=== PATIENT | male | born 1995 | race Caucasian/White ===

== ENCOUNTER 2018-12-20 22:11 | Emergency (ER) | payer BC, OTHER ==
[~2018-12-20] VITALS: Ht 170.2 cm; Wt 63.6 kg
[~2018-12-20 22:11] MED LIST: NO CURRENT MEDS; NO REGULAR MEDS
[2018-12-20 22:16] VITALS: Ht 170.2 cm; Wt 63.6 kg
[2018-12-21] MEDS ORDERED: ONDANSETRON 4 MG INJ IV STA (03:16)
[2018-12-21] MEDS ORDERED: morphine 2 MG INJ IV STA (03:16)
[2018-12-21] MEDS ORDERED: SOD CHLORIDE 0.9% 1,000 ML IV STA (03:16)
--- NOTE | 2018-12-21 03:35 | ERD ---
ER Documentation Chief Complaint Chief Complaint left abdominal pain x 2 days HPI 23-year-old male with a history of viral pancreatitis presents with upper left quadrant abdominal pain for the past 2 days. Says that he was at an urgent care earlier where they did a x-ray and that showed some inflammation in the bowel. He does not have the results though of the x-ray. States that the pain is worse when he eats. Denies any testicular pain or dysuria or penile discharge. Not taking any treatments. Denies nausea, vomiting, diarrhea, fevers. Allergic to Bactrim. ROS All systems reviewed and are negative except as per history of present illness. Medications Home Meds Active Scripts Magaldrate/Simethicone* (Mylanta*) 355 Ml Susp, 30 ML PO QID PRN for GASTROINTESTINAL UPSET, #1 BOTTLE Prov:JONNIE YUSUF 12/21/18 Famotidine* (Pepcid*) 20 Mg Tablet, 20 MG PO BID for gastritis for 7 Days, #14 TAB Prov:JONNIE YUSUF 12/21/18 Acetaminophen* (Tylophen*) 500 Mg Capsule, 2 CAP PO Q8H PRN for PAIN AND OR ELEVATED TEMP, #20 CAP Prov:JONNIE YUSUF 12/21/18 Reported Medications [No Current Meds] No Conflict Check 11/13/10 [No Regular Meds] No Conflict Check 09/19/10 Allergies Allergies: Coded Allergies: Sulfamethoxazole (Verified Allergy, Severe, 10/25/11) trimethoprim (Verified Allergy, Severe, 10/25/11) Uncoded Allergies: OLIVE TREE (Allergy, Severe, 10/25/11) CARLA PEEL (Adverse Reaction, Unknown, 07/27/09) PMhx/Soc History of Surgery: Yes (TONSILLECTOMY,adenoidectomy) Anesthesia Reaction: No Hx Neurological Disorder: No Hx Respiratory Disorders: No Hx Cardiac Disorders: No Hx Psychiatric Problems: No Hx Miscellaneous Medical Probl: No Hx Alcohol Use: Yes (socially) Hx Substance Use: No Hx Tobacco Use: No (quit) Smoking Status: Former smoker FmHx Family History: No diabetes, No coronary disease, No other Physical Exam Vitals Vital Signs Date Temp Pulse Resp B/P (MAP) Pulse Ox O2 O2 Flow FiO2 Time Delivery Rate 12/21/18 97.9 61 20 113/64 100 Room Air 05:22 (80) 12/20/18 97.2 61 18 136/79 100 22:16 (98) Physical Exam Const: No acute distress Head: Atraumatic Eyes: Normal Conjunctiva ENT: Normal External Ears, Nose and Mouth. Neck: Full range of motion. No meningismus. Resp: Clear to auscultation bilaterally Cardio: Regular rate and rhythm, no murmurs Abd: Tenderness to palpation in the upper left lower left quadrant. Negative McBurney's. Patient able to jump up and down without difficulty. Skin: No petechiae or rashes Back: No midline or flank tenderness Ext: No cyanosis, or edema Neur: Awake and alert Psych: Normal Mood and Affect Result Diagram: 12/21/1833212/21/18332 Results 24 hrs Laboratory Tests Test 12/21/18 03:33 White Blood Count 6.4 10^3/ul Red Blood Count 5.07 10^6/ul Hemoglobin 15.6 g/dl Hematocrit 47.0 % Mean Corpuscular Volume 92.7 fl Mean Corpuscular Hemoglobin 30.8 pg Mean Corpuscular Hemoglobin Concent 33.2 g/dl Red Cell Distribution Width 12.0 % Platelet Count 187 10^3/UL Mean Platelet Volume 10.5 fl Immature Granulocytes % 0.300 % Neutrophils % 56.7 % Lymphocytes % 32.5 % Monocytes % 9.2 % Eosinophils % 1.1 % Basophils % 0.2 % Nucleated Red Blood Cells % 0.0 /100WBC Immature Granulocytes # 0.020 10^3/ul Neutrophils # 3.7 10^3/ul Lymphocytes # 2.1 10^3/ul Monocytes # 0.6 10^3/ul Eosinophils # 0.1 10^3/ul Basophils # 0.0 10^3/ul Nucleated Red Blood Cells # 0.0 10^3/ul Urine Color YELLOW Urine Clarity CLEAR Urine pH 6.0 Urine Specific [place] 1.017 Urine Ketones 1+ mg/dL Urine Nitrite NEGATIVE mg/dL Urine Bilirubin NEGATIVE mg/dL Urine Urobilinogen NEGATIVE mg/dL Urine Leukocyte Esterase NEGATIVE Jie/ul Urine Hemoglobin NEGATIVE mg/dL Urine Glucose NEGATIVE mg/dL Urine Total Protein NEGATIVE mg/dl Sodium Level 140 mmol/L Potassium Level 4.3 mmol/L Chloride Level 100 mmol/L Carbon Dioxide Level 31 mmol/L Anion Gap 9 Blood Urea Nitrogen 9 mg/dl Creatinine 0.87 mg/dl Est Glomerular Filtrat Rate mL/min > 60 mL/min Glucose Level 93 mg/dl Calcium Level 9.9 mg/dl Total Bilirubin 0.8 mg/dl Direct Bilirubin 0.00 mg/dl Indirect Bilirubin 0.8 mg/dl Aspartate Amino Transf (AST/SGOT) 36 IU/L Alanine Aminotransferase (ALT/SGPT) 34 IU/L Alkaline Phosphatase 50 IU/L Total Protein 8.2 g/dl Albumin 4.9 g/dl Globulin 3.30 g/dl Albumin/Globulin Ratio 1.48 Lipase 56 U/L Current Medications Medications Dose Sig/Cash Start Time Status Last (Trade) Ordered Route PRN Stop Time Admin Dose Reason Admin Sodium 1,000 ml @ Q1H STAT 12/21/18 DC 12/21/18 Chloride 1,000 mls/hr IV 03:16 03:40 12/21/18 04:15 Morphine 2 mg ONCE STAT 12/21/18 DC 12/21/18 Sulfate IV 03:16 03:39 (morphine) 12/21/18 03:19 Ondansetron 4 mg ONCE STAT 12/21/18 DC 12/21/18 HCl (Zofran IV 03:16 03:39 Inj) 12/21/18 03:20 Sodium 100 ml @ ud STK-MED 12/21/18 DC 12/21/18 Chloride ONCE .ROUTE 04:16 04:33 12/21/18 04:17 Iohexol 150 ml STK-MED 12/21/18 DC 12/21/18 (Omnipaque ONCE .ROUTE 04:16 04:32 300mg/ ml) 12/21/18 04:17 Procedures/MDM DIAGNOSTIC IMAGING REPORT Patient: SHERRILL LOPEZ : 1995 Age: 23 Sex: M MR #: [id number] DOS: 12/21/18 0332 Ordering MD: JONNIE YUSUF Location: [facility] Room/Bed: PROCEDURE: XR Chest 1 View CLINICAL INDICATION: Pain. TECHNIQUE: VIEWS: 1 IMAGES: 1 COMPARISON: None. FINDINGS: CARDIAC AND MEDIASTINAL SILHOUETTES: Within normal limits. LUNGS: Appear clear. OSSEOUS STRUCTURES: Unremarkable. IMPRESSION: 1. No acute abnormality is appreciated. RPTAT:HGST Salena Rolon Physician Date Time Electronically viewed and signed by Salena Rolon Physician on 12/21/2018 03:56 GT/ CC: JONNIE YUSUF [phone] DIAGNOSTIC IMAGING REPORT Patient: SHERRILL LOPEZ : 1995 Age: 23 Sex: M MR #: [id number] DOS: 12/21/18 0316 Ordering MD: JONNIE YUSUF Location: [facility] Room/Bed: PROCEDURE: CT Abdomen and pelvis with contrast. CLINICAL INDICATION: Abdominal pain TECHNIQUE: CT scan of the abdomen and pelvis with contrast was performed on a multidetector high-resolution CT scan. The patient was scanned following the uncomplicated intravenous administration of 100 cc Omnipaque 300. Coronal and sagittal reformatted images were obtained from the axial source images. Standard CT of the abdomen pelvis with contrast protocols were performed. The total exam CTDI equals 5.72 mGy and the total exam DLP equals 337.56 mGy-cm. One or more of the following dose reduction techniques were used: - Automated exposure control. - Adjustment of the mA and/or kV according to patient size. Use of iterative reconstruction technique. Dicom images are available COMPARISON: None. FINDINGS: A definite appendix is not visualized however there is no CT evidence of appendicitis. Stomach, small bowel and large bowel unremarkable. No evidence of intra-abdominal free air, free fluid, abscesses or lymphadenopathy. Kidneys normal in size without calcified calculi hydronephrosis or intra renal masses bilaterally. No ureteral calcified calculi or dilatation. Partially contracted urinary bladder otherwise unremarkable. Prostate unremarkable. Liver spleen pancreas adrenal glands and gallbladder are unremarkable. No evidence of biliary ductal dilation. Lung bases unremarkable. Aorta unremarkable. Abdominal pelvic wall unremarkable. Minimal S-shaped lower thoracic lumbar scoliosis. Osseous structures otherwise unremarkable. IMPRESSION: 1. No evidence of gastrointestinal disease. 2. No evidence of calcified urinary calculi or obstructive uropathy. RPTAT:AAJJ Physician Adriana Date Time Electronically viewed and signed by Physician Adriana on 12/21/2018 04:37 BM/ CC: JONNIE YUSUF [phone] 23-year-old male with a history of viral pancreatitis presents with upper left quadrant abdominal pain for the past 2 days. Says that he was at an urgent care earlier where they did a x-ray and that showed some inflammation in the bowel. He does not have the results though of the x-ray. States that the pain is worse when he eats. Denies any testicular pain or dysuria or penile discharge. Not taking any treatments. Denies nausea, vomiting, diarrhea, fevers. Allergic to Bactrim. Given patient's history of pancreatitis as well as acute abdominal pain, decision was made to perform abdominal CT. This was approved by supervising physician. CT was within normal limits. X-ray was also within normal limits. All labs were within normal limits as well. Patient most likely suffering from gastritis. Gave patient given Rx for Pepcid as well as Mylanta. I have low suspicion for appendicitis due to patient history and exam, including normal abdominal exam, lack of McBurney's point tenderness [and ability of patient to jump up and down on exam. I have low suspicion for volvulus or obstruction due patient history and exam, including lack of history of biliary emesis and normal physical exam. [I have low suspicion for testicular torsion or phimosis due to patient history and normal exam]. I have low suspicion of invasive diarrhea due to patient history and exam, including lack of hematochez ia. I have low suspicion for dehydration due to moist and pink mucous membranes, [normal labs] patients non lethargic state, [passing PO challenge test], and normal cap refill. I have low suspicion of DKA based on patient history and exam, [including normal glucose, urinalysis, and lack of signs of dehydration]. I have low suspicion for adrenal crisis, AAA, mesenteric ischemia, pyelonephritis, cholecystitis, aortic dissection, ectopic, [place], pneumonia, acute pancreatitis, PID, or other emergent causes based on patient history and exam. Based on these findings I do not feel that additional labs, imaging. or antibiotics are necessary. Patient was discharged with strict ER precautions. Patient was recommended to follow-up with PMD. All questions answered at discharge. Departure Diagnosis: Primary Impression: Abdominal pain Abdominal location: left upper quadrant Qualified Codes: R10.12 - Left upper quadrant pain Condition: Stable SUPRIYACARMELLAJONNIE SCHILLING Dec 21, 2018 03:35
[2018-12-21] MEDS ORDERED: IOHEXOL 300MG/ML 150 ML BTL ONE (04:16)
[2018-12-21] MEDS ORDERED: SOD CHLORIDE 0.9% 100 ML ONE (04:16)
[2018-12-21] MEDS ORDERED: ACET500C5 PO (05:06)
[2018-12-21] MEDS ORDERED: MAG-19 PO (05:06)
[2018-12-21] MEDS ORDERED: FAMO-96 PO (05:06)
[2018-12-21 05:22] VITALS: BP 113/64; PULSE 61; RESP 20
== END 2018-12-21 05:24 | disposition home or self-care (01) ==
LOC: FTE 22:11
DX: R10.12 Left upper quadrant pain (principal); Z87.891 Personal history of nicotine dependence
CPT/HCPCS: 36415; 71045; 74177; 80053; 81003; 83690; 85025; 96361; 96374; 96375; 99285; J2270; J2405; J7030; Q9967